=== PATIENT | male | born 1990 | race Two or more races ===

== ENCOUNTER 2017-12-11 14:03 | Emergency (ER) | payer OTHER ==
[~2017-12-11] VITALS: Ht 172.7 cm; Wt 73.9 kg
[2017-12-11] MEDS ORDERED: AZITHROMYCIN 500 MG TABLET PO ONE (16:00)
[2017-12-11] MEDS ORDERED: PLEASE ENTER ALLERGIES MC SCH (16:00)
[2017-12-11] MEDS ORDERED: CEFTRIAXONE 250 MG IM ONE (16:00)
[2017-12-11] MEDS ORDERED: CEFTRIAXONE 250 MG ONE (16:07)
[2017-12-11] MEDS ORDERED: LIDOCAINE-MPF 1%, 2ML ONE (16:07)
[2017-12-11] MEDS ORDERED: AZITHROMYCIN 500 MG TABLET ONE (16:17)
[2017-12-11 16:24] VITALS: BP 143/71
[2017-12-11] MEDS ORDERED: LIDOCAINE 1%, 2ML INFIL ONE (16:30)
[2017-12-11 16:41] LABS: MICROSCOPIC NOT IND
[2017-12-11 16:47] LABS: CULTURE INDICATED? NO
== END 2017-12-11 16:27 | disposition home or self-care (01) ==
LOC: ED 15:31
DX: H66.001 Acute suppurative otitis media without spontaneous rupture of ear drum, right ear (principal); A64 Unspecified sexually transmitted disease
CPT/HCPCS: 81003; 87491; 87591; 96372; 99284; J0696; J3490